=== PATIENT | female | born 1980 | race Caucasian/White ===

== ENCOUNTER → 2019-01-14 | Outpatient (CLI) | payer BC ==
[~2019-01-14] MED LIST: ALPRazolam 1MG TAB ONE; GADOTERATE 7.5 MMOL/15 ML SYR ONE
== END | disposition home or self-care (01) ==
LOC: RAD 09:54
PROVIDERS: ATTEND Registered Nurse
DX: G35 Multiple sclerosis (principal)
CPT/HCPCS: 70553; 72156; 72157; A9575